=== PATIENT | female | born 1940 | race Caucasian/White ===

== ENCOUNTER → 2016-06-04 | Outpatient (CLI) | payer MEDICARE ==
[~2016-06-04] VITALS: Ht 157.5 cm; Wt 92.5 kg
[~2016-06-04] MED LIST: CALC1CAP31 PO; CALC600T57 PO; ECOT81TA5 PO; FOLI800C PO; GABA300C3 PO; GLUC500T53 PO; HYDR12.55 PO; KLON0.5T PO; LEVO88TA3 PO; LIDOCAINE 2% INJ 100 MG/5 ML SDV (FOR ANES.) As Ordered ONE; MECL-86 PO; MULTCAP11 PO; NEXI40CA PO; NS 1,000 ML IV SCH; OXYB5TA PO; POTA10CA PO; PROPOFOL 200 MG/20 ML VIAL As Ordered ONE; REME15TA PO; TOPR100T PO; TYLE500T78 PO; WELL100T2 PO; ZOCO20TA PO
--- NOTE | 2016-06-04 15:06 | ROOR ---
Patient Name: Jemma Ruvalcaba Procedure Date: 06/04/2016 2:41 PM Date of : 1940 Age: 76 Room: [facility] Gender: Female Note Status: Finalized Procedure: Colonoscopy Indications: Chronic diarrhea Providers: Didier El Jr, MD Referring MD: DANIEL BAUTISTA MD Requesting Provider: Medicines: Propofol per Anesthesia Complications: No immediate complications. Procedure: Pre-Anesthesia Assessment: - Prior to the procedure, a History and Physical was performed, and patient medications and allergies were reviewed. The patient is competent. The risks and benefits of the procedure and the sedation options and risks were discussed with the patient. All questions were answered and informed consent was obtained. Patient identification and proposed procedure were verified by the physician and the nurse in the pre-procedure area and in the procedure room. Mental Status Examination: alert and oriented. Airway Examination: normal oropharyngeal airway and neck mobility. Respiratory Examination: clear to auscultation. CV Examination: normal. ASA Grade Assessment: II - A patient with mild systemic disease. After reviewing the risks and benefits, the patient was deemed in satisfactory condition to undergo the procedure. The anesthesia plan was to use moderate sedation / analgesia (conscious sedation). Immediately prior to administration of medications, the patient was re-assessed for adequacy to receive sedatives. The heart rate, respiratory rate, oxygen saturations, blood pressure, adequacy of pulmonary ventilation, and response to care were monitored throughout the procedure. The physical status of the patient was re-assessed after the procedure. The Colonoscope was introduced through the anus and advanced to the cecum, identified by appendiceal orifice and ileocecal valve. The colonoscopy was performed without difficulty. The patient tolerated the procedure well. The quality of the bowel preparation was adequate and good. Findings: The perianal exam findings include non-thrombosed internal hemorrhoids, internal hemorrhoids that prolapse with straining, but spontaneously regress to the resting position (Grade II) and internal hemorrhoids that prolapse with straining, but require manual replacement into the anal canal (Grade III). Multiple small and large-mouthed diverticula were found in the sigmoid colon. The rectum, recto-sigmoid colon, descending colon, transverse colon, ascending colon, cecum, appendiceal orifice and ileocecal valve appeared normal. Biopsies for histology were taken with a cold forceps from the ascending colon, transverse colon, descending colon and sigmoid colon for evaluation of microscopic colitis. Impression: - Non-thrombosed internal hemorrhoids, internal hemorrhoids that prolapse with straining, but spontaneously regress to the resting position (Grade II) and internal hemorrhoids that prolapse with straining, but require manual replacement into the anal canal (Grade III) found on perianal exam. - Diverticulosis in the sigmoid colon. - The rectum, recto-sigmoid colon, descending colon, transverse colon, ascending colon, cecum, appendiceal orifice and ileocecal valve are normal. Biopsied. Recommendation: - Discharge patient to home (ambulatory). - Repeat colonoscopy in 10 years for screening purposes. Didier El MD Didier El Jr, MD 06/04/2016 3:05:52 PM This report has been signed electronically. Number of Addenda: 0 Note Initiated On: 06/04/2016 2:41 PM Estimated Blood Loss: Estimated blood loss: none.
[2016-06-04 15:36] VITALS: BP 145/84
== END | disposition home or self-care (01) ==
LOC: M OPP 14:03
PROVIDERS: ATTEND Surgery
DX: K64.8 Other hemorrhoids (principal); K64.1 Second degree hemorrhoids; K64.2 Third degree hemorrhoids; K57.30 Diverticulosis of large intestine without perforation or abscess without bleeding; I12.9 Hypertensive chronic kidney disease with stage 1 through stage 4 chronic kidney disease, or unspecified chronic kidney disease; E78.00 Pure hypercholesterolemia, unspecified; E03.9 Hypothyroidism, unspecified; D64.9 Anemia, unspecified; M19.90 Unspecified osteoarthritis, unspecified site; F41.9 Anxiety disorder, unspecified; F33.9 Major depressive disorder, recurrent, unspecified; N18.3 Chronic kidney disease, stage 3 (moderate); K21.9 Gastro-esophageal reflux disease without esophagitis; R32 Unspecified urinary incontinence; Z90.5 Acquired absence of kidney; Z97.4 Presence of external hearing-aid; Z79.899 Other long term (current) drug therapy; Z88.8 Allergy status to other drugs, medicaments and biological substances; Z88.5 Allergy status to narcotic agent; Z88.0 Allergy status to penicillin; Z88.2 Allergy status to sulfonamides; Z88.1 Allergy status to other antibiotic agents

== ENCOUNTER → 2016-12-08 | Outpatient (REF) | payer MEDICARE ==
[~2016-12-08] MED LIST changes: +GABA-282 PO; -GABA300C3 PO; -LIDOCAINE 2% INJ 100 MG/5 ML SDV (FOR ANES.) As Ordered ONE; -NS 1,000 ML IV SCH; -OXYB5TA PO; +OXYB5TAB10 PO; -PROPOFOL 200 MG/20 ML VIAL As Ordered ONE
== END ==
LOC: M LAB REF 13:20
PROVIDERS: ATTEND Surgery
DX: D23.71 Other benign neoplasm of skin of right lower limb, including hip (principal)

== ENCOUNTER → 2016-12-09 | Outpatient (REF) | payer MEDICARE | LOC: M LAB REF 17:34 | PROVIDERS: ATTEND Nurse Practitioner Women's Health | DX: R39.89 Other symptoms and signs involving the genitourinary system (principal) ==

== ENCOUNTER → 2016-12-23 | Outpatient (REF) | payer MEDICARE | LOC: M LAB REF 13:10 | PROVIDERS: ATTEND Internal Medicine Nephrology | DX: N18.3 Chronic kidney disease, stage 3 (moderate) (principal); R35.0 Frequency of micturition ==

== ENCOUNTER → 2017-03-25 | Outpatient (REF) | payer MEDICARE | LOC: M LAB REF 16:54 | PROVIDERS: ATTEND Internal Medicine Nephrology | DX: N18.3 Chronic kidney disease, stage 3 (moderate) (principal); N39.0 Urinary tract infection, site not specified ==

== ENCOUNTER → 2017-10-21 | Outpatient (REF) | payer MEDICARE | LOC: M LAB REF 13:10 | DX: R35.0 Frequency of micturition (principal) | CPT/HCPCS: 87086 ==

== ENCOUNTER → 2018-06-23 | Outpatient (REF) | payer MEDICARE ==
[~2018-06-23] MED LIST changes: -GABA-282 PO; +GABA-843 PO; +KLOR10TA76 PO; -POTA10CA PO; -TOPR100T PO; +TOPR100T13 PO
== END ==
LOC: M LAB REF 12:41
PROVIDERS: ATTEND Physician Assistant
DX: H81.399 Other peripheral vertigo, unspecified ear (principal)

== ENCOUNTER → 2018-09-06 | Outpatient (REF) | payer MEDICARE ==
[~2018-09-06] MED LIST changes: +TOPR100T PO; -TOPR100T13 PO
== END ==
LOC: M LAB REF 13:24
PROVIDERS: ATTEND Internal Medicine Nephrology
DX: N39.0 Urinary tract infection, site not specified (principal)

== ENCOUNTER → 2018-12-16 | Outpatient (REF) | payer MEDICARE | LOC: M LAB REF 14:03 | PROVIDERS: ATTEND Physician Assistant Medical | DX: N76.0 Acute vaginitis (principal); R30.0 Dysuria ==

== ENCOUNTER → 2019-03-13 | Outpatient (REF) | payer MEDICARE | LOC: M LAB REF 16:57 | PROVIDERS: ATTEND Internal Medicine Nephrology | DX: N39.0 Urinary tract infection, site not specified (principal) ==

== ENCOUNTER → 2019-08-29 | Outpatient (REF) | payer MEDICARE | LOC: M LAB REF 16:40 | PROVIDERS: ATTEND Nurse Practitioner Family | DX: N39.0 Urinary tract infection, site not specified (principal) ==

== ENCOUNTER → 2019-09-29 | Outpatient (REF) | payer MEDICARE ==
[2019-09-29 18:03] LABS: AMORPHOUS SEDIMENT SMALL (NEGATIVE); APPEARANCE, URINE CLOUDY (CLEAR); BACTERIA, URINE AUTO 1+ (NEGATIVE); BILIRUBIN, URINE AUTO NEGATIVE (NEGATIVE); BLOOD, URINE BLOOD NEGATIVE (NEGATIVE); COLOR, URINE YELLOW (YELLOW); GLUCOSE, URINE (UA) AUTO NEGATIVE (NEGATIVE); KETONE, URINE AUTO NEGATIVE (NEGATIVE); LEUKOCYTE ESTERASE, URINE AUTO 1+ (NEGATIVE); MUCUS, URINE SMALL (NEGATIVE); NITRITE, URINE AUTO NEGATIVE (NEGATIVE); PROTEIN, URINE AUTO NEGATIVE (NEGATIVE); RBC, URINE AUTO 2 /HPF (0-3); SPECIFIC GRAVITY URINE AUTO 1.019 (1.002-1.035); SQUAMOUS EPITHELIAL CELL UR AU 4 /HPF (0-6); UROBILINOGEN, URINE AUTO 0.2 mg/dL (0.0-2.0); WBC, URINE AUTO 25 /HPF (0-3)
[2019-09-29 18:37] LABS: CHOLESTEROL RISK RATIO 4.511 (<5); FREE T4 0.99 NG/DL (0.76-1.46); THYROID STIMULATING HORMONE 0.712 uIU/ML (0.358-3.740)
== END ==
LOC: M SFHCADAM 15:15
PROVIDERS: ATTEND Physician Assistant
DX: E03.9 Hypothyroidism, unspecified (principal); E78.00 Pure hypercholesterolemia, unspecified; Z79.899 Other long term (current) drug therapy
CPT/HCPCS: 80061; 81001; 84439; 84443; 87088; G0463

== ENCOUNTER → 2020-05-20 | Outpatient (CLI) | payer MEDICARE ==
[~2020-05-20] MED LIST changes: +GABA-282 PO; -GABA-843 PO; +MIRT-62 PO; -REME15TA PO
--- NOTE | 2020-05-21 08:32 | REP ---
INDICATION: CKD STAGE 3B COMPARISON: None TECHNIQUE: Real time bishop scale ultrasound examination using curved array transducer. FINDINGS: The right kidney measures 11.4 x 4.6 x 4.5 cm and demonstrates increased central sinus fat consistent with chronic renal disease and 1.4 x 1.0 x 1.3 cm midpole cyst. No hydronephrosis, nephrolithiasis, or mass lesion. The left kidney is not identified and consistent with the given history of hypoplastic/atrophic kidney. Bladder is grossly unremarkable. IMPRESSION: Right kidney demonstrates small cyst and evidence for chronic renal disease without hydronephrosis. Absent left kidney. <Electronically signed by Simon Vázquez > 05/21/20 [id number]
== END ==
LOC: M RAD 14:49
PROVIDERS: ATTEND Internal Medicine Nephrology
DX: N18.32 Chronic kidney disease, stage 3b (principal); Q60.3 Renal hypoplasia, unilateral; N28.1 Cyst of kidney, acquired

== ENCOUNTER → 2020-09-10 | Outpatient (CLI) | payer MEDICARE ==
--- NOTE | 2020-09-10 13:45 | REPMRS ---
Patient History The patient states she had a clinical breast exam in August 2020. Patient is postmenopausal and has history of other cancer at age 72. Family history of breast cancer at age 80 in mother. Benign excisional biopsy of the left breast, 1994. Benign Right breast biopsy. No Hormone Replacement Therapy Moderna 06/05/20 left arm. 07/04/20 left arm. 14 lb intentional weight loss. Digital Woman Screen Mammo: September 10, 2020 - Exam #: [id number] Bilateral CC and MLO view(s) were taken. Technologist: RT Rios Prior study comparison: September 12, 2019, bilateral digital mammo screening bilat, performed at [facility]. July 29, 2018, bilateral digital mammo screening bilat, performed at [facility]. July 22, 2017, bilateral digital mammo screening bilat, performed at [facility]. FINDINGS: There are scattered fibroglandular densities. The Volpara volumetric breast density category is:B. There has been no change in the appearance of the mammogram from the prior studies. There is a mild amount of scattered fibroglandular density which is fairly symmetric. There is no interval development of dominant mass, architectural distortion, or grouped microcalcification suggestive of malignancy. 3-D tomosynthesis shows no additional findings. Assessment: BI-RADS/ACR category 1 mammogram. Negative Mammogram. Recommendation Routine screening mammogram of both breasts in 1 year (for women over age 40). This patient's [facility] Lifetime Breast Cancer Risk is estimated at 4.1 %. This mammogram was interpreted with the aid of an FDA-approved computer-aided dectection system. Electronically Signed By: Enrique Carmona MD 09/10/20 [id number]
== END ==
LOC: M WHC 11:42
PROVIDERS: ATTEND Nurse Practitioner Adult Health
DX: Z12.31 Encounter for screening mammogram for malignant neoplasm of breast (principal)

== ENCOUNTER 2020-09-16 15:17 | Inpatient (IN) | payer MEDICARE ==
[~2020-09-16] VITALS: Ht 160 cm; Wt 80.1 kg
[2020-09-16] MEDS ORDERED: OMEP-221 (15:42)
[2020-09-16] MEDS ORDERED: TOPI50TA9 (15:42)
--- NOTE | 2020-09-16 16:54 | REP ---
INDICATION: fall. COMPARISON: None. TECHNIQUE: Helical scanning is acquired. 5 mm axial images were reformatted. Coronal MPR images were generated. FINDINGS: Bone window settings demonstrate an intact bony calvarium. There is no evidence of skull fracture or incidental bony calvarial lesion. The visualized paranasal sinuses appear clear. No intraorbital abnormality is seen. On soft tissue window setting images; the lateral, third, and fourth ventricles are normal in size and position. Guadalupe-white differentiation pattern is normal above and below the tentorium. There are is no evidence of intracranial hemorrhage. No mass, edema, infarction, or midline shift is seen. No extra-axial fluid collection is appreciated. There is minimal generalized volume loss and very mild vascular calcification. There is an occipital scalp contusion visible. IMPRESSION: No acute intracranial abnormality. There is an area of occipital scalp swelling consistent with contusion.. <Electronically signed by Enrique Carmona > 09/16/20 [id number]
[2020-09-16] MEDS ORDERED: METOPROLOL TART 25 MG TABLET PO ONE (17:00)
[2020-09-16] MEDS ORDERED: clonazePAM 0.5 MG TAB PO ONE (17:00)
[2020-09-16] MEDS ORDERED: LABETALOL 100MG/20ML VIAL IV STA ×2 (18:50→20:16)
[2020-09-16 19:39] LABS: HEMATOCRIT 38.1 % (36.0-47.0); HEMOGLOBIN 12.4 g/dl (12.0-15.5); MEAN CORPUSCULAR HEMOGLOBIN 33.2 pg (27.0-33.0); MEAN CORPUSCULAR HGB CONC 32.5 g/dl (32.0-36.5); MEAN CORPUSCULAR VOLUME 101.9 fl (80.0-96.0); PLATELET COUNT, AUTOMATED 184 10^3/uL (150-450); RED BLOOD COUNT 3.74 10^6/uL (4.00-5.40); WHITE BLOOD COUNT 6.3 10^3/uL (4.0-10.0)
[2020-09-16 20:15] LABS: ALBUMIN 3.1 GM/DL (3.2-5.2); ALT/SGPT 41 U/L (12-78); BILIRUBIN,DIRECT < 0.1 MG/DL (0.0-0.2); BILIRUBIN,TOTAL 0.2 MG/DL (0.2-1.0); BLOOD UREA NITROGEN 32 MG/DL (7-18); CALCIUM LEVEL 8.8 MG/DL (8.8-10.2); CARBON DIOXIDE LEVEL 26 MEQ/L (21-32); CHLORIDE LEVEL 114 MEQ/L (98-107); CREATININE FOR GFR 1.43 MG/DL (0.55-1.30); GLOMERULAR FILTRATION RATE 37.7 (>39); GLUCOSE, FASTING 91 MG/DL (70-100); POTASSIUM SERUM 4.5 MEQ/L (3.5-5.1); SODIUM LEVEL 145 MEQ/L (136-145); TOTAL PROTEIN 6.6 GM/DL (6.4-8.2)
[2020-09-16] MEDS ORDERED: FUROSEMIDE 20MG/2ML VIAL (J1940) IV ONE (20:20)
[2020-09-16 20:34] LABS: CK-MB VALUE MASS 39.1 NG/ML (<3.6); CPK CREATINE PHOSPHOKINASE 813 U/L (26-192); MB/CK RELATIVE INDEX 4.81 (< OR =4); TROPONIN I < 0.02 NG/ML (< 0.10)
[2020-09-16] MEDS ORDERED: MOM 30ML SUSPENSION UDC PO PRN (20:45)
[2020-09-16] MEDS ORDERED: MAALOX 30 ML SUSP *UDC PO PRN (20:45)
[2020-09-16] MEDS ORDERED: PRAVASTATIN 20 MG TAB PO SCH (21:00)
[2020-09-16] MEDS: ACETAMINOPHEN TAB 650MG DOSE (2X325MG) PO PRN (21:25)
[2020-09-16] MEDS ORDERED: BUPR150T5 PO (21:26)
[2020-09-16] MEDS ORDERED: TOPI50TA9 PO (21:26)
[2020-09-16] MEDS ORDERED: OMEP-221 PO (21:26)
[2020-09-16] MEDS ORDERED: CRAN400C PO (21:26)
[2020-09-16] MEDS ORDERED: PRAV20TA2 PO (21:26)
[2020-09-16 22:10] LABS: RSV AMPLIFICATION NEGATIVE (NEGATIVE)
--- NOTE | 2020-09-16 23:15 | HPEPDOC ---
[facility] Medical History & Physical Date of Admission September 16, 2020 Date of Service: September 16, 2020 Primary Care Physician: ELAINE VILLATORO PA-C Attending Physician: JACLYN GUIDRY MD History and Physical TIME OF SERVICE: 923pm CHIEF COMPLAINT: fall HISTORY OF PRESENT ILLNESS: This 80 yr old F has severe bilateral knee pain due to OA and has been putting of surgery. As a result of the pain she has been less active and has noticed that her gait is unsteady. While trying to walk to [facility] from her car she had difficulties stepping upon the curb, lost her balance, fell backwards, hit the back of her head but didnt lose consciousness. As a result of the fall she developed a BERGMAN. She denied having prodromal chest pain, dyspnea, dizziness, or n/v/d; she denied eating or drinking less than usual. After she fell [facility] staff called EMS who noted that her initial BP was 230/130. Despite receiving 20mg of IV Lasix, 20mg of IV Labetalol x2, Clonazepam 0.25mg and metoprolol tartrate 25mg PO the patients SBP is still in the 200s. REVIEW OF SYSTEMS: 12-point review of systems negative except as listed in HPI PAST MEDICAL/ SURGICAL HISTORY: unsteady gait 2/2 OA, hypothyroidism, depression, GERD, gastric ulcers, migraines, essential HTN, CKD3, Neuropathy, anxiety, DLP, hx of vertigo, IBS-D w C, hearing loss, bilateral hip replacements, hemorrhoidectomy, tubal ligation SOCIAL HISTORY: She doesnt smoke, is FAMILY HISTORY: Mother breast cancer / Father HTN ALLERGIES: Please see below. HOME MEDICATIONS: Please see below. PHYSICAL EXAMINATION: Vital Signs Date Time Temp Pulse Resp B/P (MAP) Pulse Ox O2 Delivery O2 Flow Rate FiO2 09/16/20 16:07 97.8 61 18 140/96 (111) 95 Room Air GENERAL APPEARANCE: well-nourished and developed/ NAD HEENT: EOMI / no conjunctival injection CARDIOVASCULAR: RRR/NMRG LUNGS: CTAB on RA ABDOMEN: contour obese /soft & NT MUSCULOSKELETAL: occipital scalp swelling NEUROLOGICAL: CN 2-12 grossly intact except for hearing / speech not dysarthric PSYCHIATRIC: A&O /able to understand and follow all commands LABORATORY DATA: Nucleated Red Blood Cells % (auto) 0.0, Anion Gap 5L, Glomerular Filtration Rate 37.7L, Calcium Level 8.8, Total Bilirubin 0.2, Direct Bilirubin < 0.1, Aspartate Amino Transf (AST/SGOT) 31, Alanine Aminotransferase (ALT/SGPT) 41, Alkaline Phosphatase 82, Total Creatine Kinase 813H, Creatine Kinase MB 39.1H, Creatine Kinase MB Relative Index 4.81H, Troponin I < 0.02, Total Protein 6.6, Albumin 3.1L, Albumin/Globulin Ratio 0.9L IMAGING: CT head IMPRESSION: No acute intracranial abnormality. There is an area of occipital scalp swelling consistent with contusion. MICROBIOLOGY: respiratory panel neg ASSESSMENT: Ms. Ruvalcaba is a 80 yr old w unsteady gait 2/2 OA, hypothyroidism, depression, migraines, HTN, CKD3, Neuropathy, anxiety, DLP, hx of vertigo & IBS- D w C who had a mechanical fall and will be admitted for HTN Crisis. PLAN: 1 Hypertensive Crisis Her only symptom is BERGMAN which could also be attributed to head trauma He diagnosis will be Hypertensive Urgency if it is confirmed that her Cr is at baseline vs Hypertensive Emergency if it is confirmed that she has NATHAN Plan: bc her SBP remained >200 despite several BP meds we will admit to ICU for a continuous infusion of nitroprusside to achieve rapid and tightly controlled reduction while avoiding overcorrection / will aim to lower BP by 25% w/in the first 2-4 hours with target BP of <160/100 / avoid excessive environmental stimuli / resume metoprolol, the day time team may add another anti-HTN agent in the AM if she is off the drip 2 NATHAN vs NATHAN on CKD3 I am not sure what her baseline renal function is. If she has NATHAN it is likey triggered by an acute elevation in her BP Plan: pending [place] for FENa, renal US, PTH, Phosph will hold off starting IVF / Calcitriol 3 Mechanical Fall I asked Mckinley Edouard to complete the Trauma Activation sheet Plan: frequent neuro checks/fall precautions/ the day time team may consult physical therapy 4 hypothyroidism Plan: Levothyroxine 5 Neuropathy Plan: Gabapentin 6 migraines Plan: Topiramate 7 Neuropathy Plan: Gabapentin 8 anxiety / depression Plan: Clonazepam, Mirtazapine 9 DLP Plan: Pravastatin 10 Obesity Complicates care Plan: f/u A1C. / the patient can f/u w his or her PCP for sleep apnea screening DVT px w Heparin Dispo: home vs ARU after at least 2 midnights stay Home Medications Scheduled Bupropion Hcl (Bupropion HCl Sr) 150 Mg Tab.sr.12h, 150 MG PO QHS Calcitriol (Calcitriol) 0.25 Mcg Cap, 0.25 MCG PO 2XW WEDNESDAY AND WEDNESDAY Clonazepam (Klonopin) 0.5 Mg Tab, 0.25 MG PO DAILY Cranberry (Cranberry) 400 Mg Capsule, 400 MG PO BID Folic Acid (Folic Acid) 800 Mcg Cap, 800 MCG PO DAILY Gabapentin (Gabapentin) 300 Mg Cap, 300 MG PO BID Levothyroxine Sodium (Levothyroxine Sodium) 88 Mcg Tab, 88 MCG PO QHS Metoprolol Succinate (Toprol Xl) 100 Mg Tab, 100 MG PO DAILY Mirtazapine (Remeron) 15 Mg Tab, 15 MG PO QHS Omeprazole (Omeprazole) 40 Mg Capsule.dr, 40 MG PO DAILY Oxybutynin Chloride (Oxybutynin Chloride) 5 Mg Tab, 5 MG PO BID Pravastatin Sodium (Pravastatin Sodium) 20 Mg Tablet, 20 MG PO 2XWK WEDNESDAY AND WEDNESDAY AT QHS Topiramate (Topiramate) 50 Mg Tablet, 50 MG PO BID Allergies Coded Allergies: Penicillins (Verified Allergy, Intermediate, hives, 09/16/20) Tetracyclines (Verified Adverse Reaction, Intermediate, pernicious anemia, 09/16/20) sulfamethoxazole (Verified Adverse Reaction, Intermediate, acute kidney injury, 09/16/20) trimethoprim (Verified Adverse Reaction, Intermediate, acute kidney injury, 09/16/20) NSAIDS (Non-Steroidal Anti-Inflamma (Verified Adverse Reaction, Mild, hernia upset, 09/16/20) alprazolam (Verified Adverse Reaction, Mild, upset stomach, 09/16/20) amlodipine (Verified Adverse Reaction, Mild, nervousness, edgey, 09/16/20) isopropamide (Verified Adverse Reaction, Mild, AMS, 09/16/20) oxycodone (Verified Adverse Reaction, Mild, nausea and dizziness, 09/16/20) prochlorperazine (Verified Adverse Reaction, Mild, AMS, 09/16/20) JACLYN GUIDRY MD September 16, 2020 23:14
[2020-09-16] MEDS ORDERED: MIRTAZAPINE 15 MG TAB PO SCH (23:20)
[2020-09-16] MEDS ORDERED: buPROPion **SR TABLET** (ZYBAN) 150MG PO SCH (23:20)
[2020-09-16] MEDS ORDERED: LEVOTHYROXINE 88MCG TABLET (0.088 MG) PO SCH (23:20)
[2020-09-16 23:41] VITALS: BP 151/70
[2020-09-16 23:44] LABS: PHOSPHORUS LEVEL 3.4 MG/DL (2.5-4.9); URIC ACID 5.1 MG/DL (2.6-6.0)
[2020-09-17] VITALS (53 sets, daily range): BP systolic 99–216; BP diastolic 51–99
[2020-09-17] MEDS ORDERED: PILL CUTTER 1 EACH XX PRN (00:15)
[2020-09-17 01:08] LABS: APPEARANCE, URINE CLEAR (CLEAR); BACTERIA, URINE AUTO NEGATIVE (NEGATIVE); BILIRUBIN, URINE AUTO NEGATIVE (NEGATIVE); BLOOD, URINE BLOOD NEGATIVE (NEGATIVE); COLOR, URINE COLORLESS (YELLOW); GLUCOSE, URINE (UA) AUTO NEGATIVE (NEGATIVE); KETONE, URINE AUTO NEGATIVE (NEGATIVE); LEUKOCYTE ESTERASE, URINE AUTO NEGATIVE (NEGATIVE); MUCUS, URINE SMALL (NEGATIVE); NITRITE, URINE AUTO NEGATIVE (NEGATIVE); PROTEIN, URINE AUTO NEGATIVE (NEGATIVE); RBC, URINE AUTO 0 /HPF (0-3); SPECIFIC GRAVITY URINE AUTO 1.005 (1.002-1.035); SQUAMOUS EPITHELIAL CELL UR AU 1 /HPF (0-6); UROBILINOGEN, URINE AUTO 0.2 mg/dL (0.0-2.0); WBC, URINE AUTO 2 /HPF (0-3)
[2020-09-17] MEDS: oxyBUTYnin 5 MG TAB PO SCH ×2 (01:19→08:49)
[2020-09-17] MEDS: TOPIRAMATE (TopAMAX) 25 MG TAB PO SCH ×2 (01:19→08:48)
[2020-09-17] MEDS: GABAPENTIN 300 MG CAP PO SCH ×2 (01:19→08:49)
[2020-09-17 01:40] LABS: SODIUM,RANDOM URINE 131 MEQ/L; UREA NITROGEN RANDOM URINE 179 MG/DL
[2020-09-17] MEDS ORDERED: NITROPRUSSIDE SODIUM 50 MG in IV 1 EA IV SCH ×3 (05:00)
[2020-09-17 05:02] LABS: HEMATOCRIT 40.1 % (36.0-47.0); HEMOGLOBIN 13.1 g/dl (12.0-15.5); MEAN CORPUSCULAR HEMOGLOBIN 32.8 pg (27.0-33.0); MEAN CORPUSCULAR HGB CONC 32.7 g/dl (32.0-36.5); MEAN CORPUSCULAR VOLUME 100.3 fl (80.0-96.0); PLATELET COUNT, AUTOMATED 179 10^3/uL (150-450); WHITE BLOOD COUNT 5.6 10^3/uL (4.0-10.0)
[2020-09-17 05:23] LABS: BLOOD UREA NITROGEN 31 MG/DL (7-18); CALCIUM LEVEL 8.8 MG/DL (8.8-10.2); CARBON DIOXIDE LEVEL 25 MEQ/L (21-32); CHLORIDE LEVEL 112 MEQ/L (98-107); CREATININE FOR GFR 1.49 MG/DL (0.55-1.30); GLOMERULAR FILTRATION RATE 35.9 (>39); GLUCOSE, FASTING 88 MG/DL (70-100); POTASSIUM SERUM 4.2 MEQ/L (3.5-5.1); SODIUM LEVEL 144 MEQ/L (136-145)
[2020-09-17 05:27] LABS: HEMOGLOBIN A1c 5.3 %
[2020-09-17] MEDS ORDERED: HEPARIN SOD (PORCINE) 5000UNITS/ML 1ML VIAL/SYRINGE SQ SCH (06:00)
[2020-09-17 07:14] LABS: TROPONIN I < 0.02 NG/ML (< 0.10)
--- NOTE | 2020-09-17 07:43 | REP ---
INDICATION: nichelle COMPARISON: 05/20/2020 TECHNIQUE: Real time bishop scale ultrasound examination using curved array transducer. FINDINGS: Right kidney is normal in appearance and measures 11.0 x 5.0 x 5.4 cm. No hydronephrosis, nephrolithiasis, obvious cystic or renal mass lesion. The 14 mm cyst identified on recent prior examination is not visualized on current exam and may be secondary to technical factors. Left renal fossa is empty without evidence for left kidney. Bladder is unremarkable. IMPRESSION: 1. Normal appearance of the right kidney. Previously noted small right renal cyst not visualized on current exam. <Electronically signed by Simon Vázquez > 09/17/20 [id number]
[2020-09-17] MEDS ORDERED: METOPROLOL SUCC (TopROL XL) 100MG *XL* TAB PO SCH (09:00)
[2020-09-17] MEDS ORDERED: OMEPRAZOLE 20 MG CAP PO SCH (09:00)
[2020-09-17] MEDS ORDERED: clonazePAM 0.5 MG TAB PO SCH (09:00)
[2020-09-17] MEDS: ACETAMINOPHEN TAB 650MG DOSE (2X325MG) PO PRN (09:08)
[2020-09-17 09:21] LABS: TOTAL 25(OH) VITAMIN D 18.3 NG/ML (30.0-100.0)
[2020-09-17 09:22] LABS: PTH INTACT 67.6 PG/ML (18.5-88.0)
--- NOTE | 2020-09-17 10:34 | DS.PDOC ---
Discharge Summary General Date of Admission September 16, 2020 at 20:45 Date of Discharge 09/17/20 Discharge Summary PROCEDURES PERFORMED DURING STAY: [None]. DISCHARGE DIAGNOSES: Mechanical fall with no trauma Hypertensive urgency. 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 HOSPITAL COURSE: This 80 yr old F has severe bilateral knee pain due to OA and has been putting of surgery. As a result of the pain she has been less active and has noticed that her gait is unsteady. While trying to walk to [place] from her car she had difficulties stepping upon the curb, lost her balance, fell backwards, hit the back of her head, right shoulder and lower back but didnt lose consciousness. After she fell [facility] staff called EMS who noted that her initial BP was 230/130. Despite receiving 20mg of IV Lasix, 20mg of IV Labetalol x2, Clonazepam 0.25mg and metoprolol tartrate 25mg PO the patients SBP was still in the 200s so was admitted for Hypertensive urgency. She was on nitroprusside drip for about an hour and after that her blood pressure improved, hasn't been on any drip for the past several hours. She was continued on her metoprolol 100 mg daily and was started on amlodipine 10mg. this morning. She complains of some soreness of the back of the head and her right shoulder and her back for which she was given Tylenol. Her blood pressure is better controlled. . Currently she is stable and doing well. She is given to be discharged home. REVIEW OF SYSTEMS: 12-point review of systems negative except as listed in HPI PAST MEDICAL/ SURGICAL HISTORY: DISCHARGE MEDICATIONS: Please see below. ALLERGIES: Please see below. PHYSICAL EXAMINATION ON DISCHARGE: VITAL SIGNS: Please see below. GENERAL: Alert, oriented, sitting up in bed in no distress HEENT: Normocephalic, Moist mucous membranes. Anicteric eyes, there is a small scalp hematoma at the back of the head NECK: Supple, no thyromegaly CARDIOVASCULAR EXAMINATION: S1, S2 normal regular heart sounds. No rub, murmur or gallop RESPIRATORY EXAMINATION: Bilateral vesicular breath sounds clear to auscultation ABDOMINAL EXAMINATION: Soft, nontender. Bowel sounds normal EXTREMITIES: No edema LABORATORY DATA: Please see below. ACTIVITY: [As tolerated]. DIET: 2 g sodium DISCHARGE PLAN: Home DISCHARGE INSTRUCTIONS: With PMD in 1 week DISCHARGE CONDITION: [Stable]. TIME SPENT ON DISCHARGE: 35 minutes. Vital Signs/I&Os Vital Signs Date Time Temp Pulse Resp B/P (MAP) Pulse Ox O2 Delivery O2 Flow Rate FiO2 09/17/20 09:08 59 178/75 09/17/20 09:00 18 95 Room Air 09/17/20 08:00 98.1 I&O- Last 24 Hours up to 6 AM 09/17/20 06:00 Intake Total 50 ml Output Total 420 ml Balance -370 ml Laboratory Data Labs 24H Laboratory Tests 2 09/16/20 18:50: Nucleated Red Blood Cells % (auto) 0.0, Anion Gap 5L, Glomerular Filtration Rate 37.7L, Uric Acid 5.1, Calcium Level 8.8, Phosphorus Level 3.4, Total Bilirubin 0.2, Direct Bilirubin < 0.1, Aspartate Amino Transf (AST/SGOT) 31, Alanine Aminotransferase (ALT/SGPT) 41, Alkaline Phosphatase 82, Total Creatine Kinase 813H, Creatine Kinase MB 39.1H, Creatine Kinase MB Relative Index 4.81H, Troponin I < 0.02, Total Protein 6.6, Albumin 3.1L, Albumin/Globulin Ratio 0.9L, 25-Hydroxy Vitamin D Total 18.3L, Parathyroid Hormone (Intact) 67.6 09/16/20 21:19: Coronavirus (COVID-19)(PCR) NEGATIVE, Influenza Type A (RT-PCR) NEGATIVE, Influenza Type B (RT-PCR) NEGATIVE, Respiratory Syncytial Virus (PCR) NEGATIVE 09/17/20 00:53: Urine Color COLORLESS, Urine Appearance CLEAR, Urine pH 5.0, Urine Specific [place] 1.005, Urine Protein NEGATIVE, Urine Glucose (Auto)(UA) NEGATIVE, Urine Ketones (Auto) NEGATIVE, Urine Blood NEGATIVE, Urine Nitrite NEGATIVE, Urine Bilirubin NEGATIVE, Urine Urobilinogen 0.2, Urine Leukocyte Esterase (Auto) NEGATIVE, Urine WBC (Auto) 2, Urine RBC (Auto) 0, Urine Hyaline Casts (Auto) 1, Urine Bacteria (Auto) NEGATIVE, Urine Squamous Epithelial Cells 1, Urine Mucus (Auto) SMALL, Urine Sperm (Auto) , Urine Random Creatinine 15.5, Urine Random Sodium 131, Urine Random Urea Nitrogen 179 09/17/20 04:33: Nucleated Red Blood Cells % (auto) 0.0, Anion Gap 7L, Glomerular Filtration Rate 35.9L, Calcium Level 8.8, Troponin I < 0.02, Estimated Mean Plasma Glucose 105, Hemoglobin A1c 5.3 CBC/BMP Laboratory Tests 09/16/20 18:50 09/17/20 04:33 Discharge Medications Scheduled Bupropion Hcl (Bupropion HCl Sr) 150 Mg Tab.sr.12h, 150 MG PO QHS, (Reported) Calcitriol (Calcitriol) 0.25 Mcg Cap, 0.25 MCG PO 2XW, (Reported) WEDNESDAY AND WEDNESDAY Clonazepam (Klonopin) 0.5 Mg Tab, 0.25 MG PO DAILY, (Reported) Cranberry (Cranberry) 400 Mg Capsule, 400 MG PO BID, (Reported) Folic Acid (Folic Acid) 800 Mcg Cap, 800 MCG PO DAILY, (Reported) Gabapentin (Gabapentin) 300 Mg Cap, 300 MG PO BID, (Reported) Levothyroxine Sodium (Levothyroxine Sodium) 88 Mcg Tab, 88 MCG PO QHS, (Reported) Metoprolol Succinate (Toprol Xl) 100 Mg Tab, 100 MG PO DAILY, (Reported) Mirtazapine (Remeron) 15 Mg Tab, 15 MG PO QHS, (Reported) Omeprazole (Omeprazole) 40 Mg Capsule.dr, 40 MG PO DAILY, (Reported) Oxybutynin Chloride (Oxybutynin Chloride) 5 Mg Tab, 5 MG PO BID, (Reported) Pravastatin Sodium (Pravastatin Sodium) 20 Mg Tablet, 20 MG PO 2XWK, (Reported) WEDNESDAY AND WEDNESDAY AT QHS Topiramate (Topiramate) 50 Mg Tablet, 50 MG PO BID, (Reported) Allergies Coded Allergies: Penicillins (Verified Allergy, Intermediate, hives, 09/16/20) Tetracyclines (Verified Adverse Reaction, Intermediate, pernicious anemia, 09/16/20) sulfamethoxazole (Verified Adverse Reaction, Intermediate, acute kidney injury, 09/16/20) trimethoprim (Verified Adverse Reaction, Intermediate, acute kidney injury, 09/16/20) NSAIDS (Non-Steroidal Anti-Inflamma (Verified Adverse Reaction, Mild, hernia upset, 09/16/20) alprazolam (Verified Adverse Reaction, Mild, upset stomach, 09/16/20) amlodipine (Verified Adverse Reaction, Mild, nervousness, edgey, 09/16/20) isopropamide (Verified Adverse Reaction, Mild, AMS, 09/16/20) oxycodone (Verified Adverse Reaction, Mild, nausea and dizziness, 09/16/20) prochlorperazine (Verified Adverse Reaction, Mild, AMS, 09/16/20) STEFANIE CANTOR MD September 17, 2020 10:34
[2020-09-17] MEDS ORDERED: AMLO1TAB25 PO ×2 (10:35→11:47)
[2020-09-17] MEDS ORDERED: **hydrALAZINE HCL** 25 MG TAB PO SCH (12:00)
--- NOTE | 2020-09-17 21:33 | ECGEPIP ---
[facility] - ED Test Date: 2020-09-16 Pat Name: ANIL LEZAMA Department: Room: [place] [address] Gender: Female Vest Backer: NOHEMY : 1940 Requested By: MAURY KELLER Order Number: [id number] Reading MD: Hina Jay Measurements Intervals [place] Rate: 67 P: 46 [place]: 182 QRS: -47 QRSD: 100 T: 4 QT: 420 QTc: 443 Interpretive Statements Normal sinus rhythm Left anterior fascicular block Left ventricular hypertrophy ( R in aVL , [place] product , Romhilt-Rose ) NSTTW abnormalities prwp no prior Electronically Signed on 09-17-2020 21:33:05 EDT by Hina Jay
[2020-09-20] MEDS ORDERED: CALCITRIOL 0.25 MCG CAP (S0169) PO SCH (09:00)
== END 2020-09-17 12:17 | disposition home or self-care (01) | DRG 305 ==
LOC: M ED 15:17 → M ED INP 20:45 → M ICU 23:26
PROVIDERS: ADMIT Internal Medicine; ATTEND Internal Medicine Nephrology
DX: I16.0 Hypertensive urgency (principal); S00.83XA Contusion of other part of head, initial encounter; W10.1XXA Fall (on)(from) sidewalk curb, initial encounter; Y92.9 Unspecified place or not applicable; N18.30 Chronic kidney disease, stage 3 unspecified; E03.9 Hypothyroidism, unspecified; G62.9 Polyneuropathy, unspecified; F41.9 Anxiety disorder, unspecified; F32.9 Major depressive disorder, single episode, unspecified; E78.5 Hyperlipidemia, unspecified; E66.9 Obesity, unspecified; Z66 Do not resuscitate; Z79.899 Other long term (current) drug therapy; Z88.0 Allergy status to penicillin; Z88.5 Allergy status to narcotic agent; Z88.8 Allergy status to other drugs, medicaments and biological substances; M17.0 Bilateral primary osteoarthritis of knee; R26.81 Unsteadiness on feet; Z68.31 Body mass index [BMI] 31.0-31.9, adult

== ENCOUNTER → 2020-09-24 | Outpatient (REF) | payer MEDICARE ==
[~2020-09-24] MED LIST changes: +AMLO1TAB25 PO; +BUPR150T5 PO; +CRAN400C PO; +OMEP-221; +OMEP-221 PO; +PRAV20TA2 PO; +TOPI50TA9; +TOPI50TA9 PO
[2020-09-24 13:20] LABS: CALCIUM LEVEL 9.1 MG/DL (8.8-10.2); CREATININE FOR GFR 1.57 MG/DL (0.55-1.30); GLOMERULAR FILTRATION RATE 33.8 (>39)
== END ==
LOC: M SFHCADAM 10:15
PROVIDERS: ATTEND Physician Assistant
DX: N18.32 Chronic kidney disease, stage 3b (principal)
CPT/HCPCS: 80048; 99496; G0463

== ENCOUNTER → 2020-12-03 | Outpatient (REF) | payer MEDICARE ==
[~2020-12-03] MED LIST changes: -KLOR10TA76 PO; +POTA-136 PO
[2020-12-03 14:09] LABS: CHOLESTEROL RISK RATIO 5.186 (<5); FREE T4 0.94 NG/DL (0.76-1.46); THYROID STIMULATING HORMONE 0.963 uIU/ML (0.358-3.740)
== END ==
LOC: M SFHCADAM 10:02
PROVIDERS: ATTEND Physician Assistant
DX: E03.9 Hypothyroidism, unspecified (principal); E78.00 Pure hypercholesterolemia, unspecified
CPT/HCPCS: 80061; 84439; 84443; G0463

== ENCOUNTER 2021-01-30 16:45 | Inpatient (IN) | payer MEDICARE ==
[~2021-01-30] VITALS: Ht 160 cm; Wt 82.3 kg
[2021-01-30 18:01] LABS: BASO # 0.1 10^3/uL (0.0-0.2); BASO % 1.3 % (0.0-1.0); EOS # 0.2 10^3/uL (0.0-0.5); EOS % 2.9 % (0.0-3.0); HEMATOCRIT 39.5 % (36.0-47.0); HEMOGLOBIN 12.9 g/dl (12.0-15.5); LYMPH # 1.4 10^3/uL (1.5-5.0); LYMPH % 25.4 % (24.0-44.0); MEAN CORPUSCULAR HEMOGLOBIN 32.8 pg (27.0-33.0); MEAN CORPUSCULAR HGB CONC 32.7 g/dl (32.0-36.5); MEAN CORPUSCULAR VOLUME 100.5 fl (80.0-96.0); MONO # 0.7 10^3/uL (0.0-0.8); MONO % 12.6 % (2.0-8.0); NEUTROPHILS # 3.2 10^3/uL (1.5-8.5); NEUTROPHILS % 57.6 % (36.0-66.0); PLATELET COUNT, AUTOMATED 204 10^3/uL (150-450); RED BLOOD COUNT 3.93 10^6/uL (4.00-5.40); WHITE BLOOD COUNT 5.5 10^3/uL (4.0-10.0)
--- NOTE | 2021-01-30 18:02 | REP ---
INDICATION: CHEST PAIN COMPARISON: None. TECHNIQUE: Portable AP view of the chest FINDINGS: The mediastinum and cardiac silhouette are within normal limits for portable technique. The lung pereira are clear without acute consolidation, effusion, or pneumothorax. Skeletal structures are intact. IMPRESSION: No acute cardiopulmonary process appreciated. <Electronically signed by Simon Vázquez > 01/30/21 [id number]
[2021-01-30 18:47] LABS: ALBUMIN 3.2 GM/DL (3.2-5.2); ALT/SGPT 54 U/L (12-78); BILIRUBIN,DIRECT < 0.1 MG/DL (0.0-0.2); BILIRUBIN,TOTAL 0.2 MG/DL (0.2-1.0); BLOOD UREA NITROGEN 39 MG/DL (7-18); CALCIUM LEVEL 9.3 MG/DL (8.8-10.2); CARBON DIOXIDE LEVEL 24 MEQ/L (21-32); CHLORIDE LEVEL 112 MEQ/L (98-107); CK-MB VALUE MASS 42.3 NG/ML (<3.6); CPK CREATINE PHOSPHOKINASE 792 U/L (26-192); CREATININE FOR GFR 1.72 MG/DL (0.55-1.30); GLOMERULAR FILTRATION RATE 30.5 (>39); GLUCOSE, FASTING 96 MG/DL (70-100); LIPASE 118 U/L (73-393); MB/CK RELATIVE INDEX 5.34 (< OR =4); NT-PRO BNP 360 PG/ML (<450); POTASSIUM SERUM 4.6 MEQ/L (3.5-5.1); SODIUM LEVEL 143 MEQ/L (136-145); TOTAL PROTEIN 7.6 GM/DL (6.4-8.2); TROPONIN I < 0.02 NG/ML (< 0.10)
[2021-01-30] MEDS ORDERED: hydrALAZINE 20MG/ML 1ML VIAL (J0360 PER 20MG) IV ONE (18:50)
[2021-01-30] MEDS ORDERED: NS 1,000 ML IV SCH (18:50)
--- NOTE | 2021-01-30 19:59 | ECGEPIP ---
[facility] - ED Test Date: 2021-01-30 Pat Name: ANIL LEZAMA Department: Room: - Gender: Female Channeler Insole: : 1940 Requested By: Hina Jay Order Number: [id number] Reading MD: Skyler Lindsay Measurements Intervals [place] Rate: 55 P: 43 CO: 222 QRS: -41 QRSD: 108 T: 1 QT: 434 QTc: 415 Interpretive Statements Sinus bradycardia with 1st degree AV block Left axis deviation LEFT ANTERIOR FASCICULAR BLOCK INCOMPLETE RIGHT BUNDLE BRANCH BLOCK Left ventricular hypertrophy ( R in aVL , [place] product , Romhilt-Rose ) SIMILAR TO 09/16/20 Electronically Signed on 01-30-2021 19:59:01 EDT by Skyler Lindsay
[2021-01-30] MEDS ORDERED: hydrALAZINE 20MG/ML 1ML VIAL (J0360 PER 20MG) IV STA (20:42)
[2021-01-30] MEDS ORDERED: buPROPion **SR TABLET** (ZYBAN) 150MG PO SCH (21:00)
[2021-01-30 21:20] LABS: CK-MB VALUE MASS 41.1 NG/ML (<3.6); CPK CREATINE PHOSPHOKINASE 751 U/L (26-192); MB/CK RELATIVE INDEX 5.47 (< OR =4); TROPONIN I < 0.02 NG/ML (< 0.10)
[2021-01-30] MEDS ORDERED: MAALOX 30 ML SUSP *UDC PO PRN (21:50)
[2021-01-30] MEDS ORDERED: LABETALOL 200 MG TAB PO SCH (21:50)
[2021-01-30] MEDS ORDERED: ACETAMINOPHEN TAB 650MG DOSE (2X325MG) PO PRN (21:50)
[2021-01-30] MEDS ORDERED: MOM 30ML SUSPENSION UDC PO PRN (21:50)
[2021-01-30] MEDS ORDERED: FUROSEMIDE 40 MG TAB PO SCH (21:50)
--- NOTE | 2021-01-30 21:55 | HPEPDOC ---
[facility] Medical History & Physical Date of Admission Jan 30, 2021 Date of Service: Jan 30, 2021 Primary Care Physician: ELAINE VILLATORO PA-C Attending Physician: JACLYN GUIDRY MD History and Physical TIME OF SERVICE: 1006pm CHIEF COMPLAINT: chest pain HISTORY OF PRESENT ILLNESS: , a 80 yr old F was last admitted to our service in August for HTN Crisis; in addition to c/w her Metoprolol she was discharged with amlodipine 10mg daily. She felt like the amlodipine made her fell unwell so she discontinued it. She has followed up with Elaine Aguirre. This morning at about 830AM she developed 2/10 in severity left sided, non- reproducible chest pain; she couldnt identify any aggravating or alleviating factors. She also has a BERGMAN but denies being dizzy or feeling short of breath. She denies missing any doses of her metoprolol, taking NSAIDs, drinking soda, eating salty foods, being under a lot of stress or smoking. When she checked her BP it was high so she decided to come to the ER; according to the pt her BP was normal yesterday. Because her SBP was in the 200s [place] Mak ordered 10mg of IV hydralazine x 2. REVIEW OF SYSTEMS: 12-point review of systems negative except as listed in HPI PAST MEDICAL/ SURGICAL HISTORY: unsteady gait 2/2 OA, hypothyroidism, depression/ anxiety, GERD, gastric ulcers, migraines, essential HTN, CKD3, neuropathy, DLP, hx of vertigo, IBS-D /C, diverticulosis, hearing loss, class 1 obesity, bilateral total hip replacements, hemorrhoidectomy, tubal ligation, hysterectomy FAMILY HISTORY: Mother breast cancer / Father HTN SOCIAL HISTORY: She doesnt smoke, is a ALLERGIES: Please see below. HOME MEDICATIONS: Please see below. PHYSICAL EXAMINATION: Vital Signs Date Time Temp Pulse Resp B/P (MAP) Pulse Ox O2 Delivery O2 Flow Rate FiO2 01/30/21 16:46 97.6 54 16 190/99 (129) 93 Room Air GENERAL APPEARANCE: well-nourished and developed/ NAD HEENT: EOMI / MMM&P CARDIOVASCULAR: RRR/NMRG LUNGS: CTAB on RA ABDOMEN: contour convex MUSCULOSKELETAL: NCAT / JULIETA x 4 extremities INTEGUMENT: not flushed pale or diaphoretic NEUROLOGICAL: speech not dysarthric PSYCHIATRIC: A&O / able to understand and follow all commands LABORATORY DATA: IMAGING: Chest xray IMPRESSION: No acute cardiopulmonary process appreciated. MICROBIOLOGY: Respiratory panel negative ASSESSMENT: is a 80 yr old w a hx of unsteady gait 2/2 OA, hypothyroidism, depression/ anxiety, gastric ulcers, migraines, HTN, CKD3, neuropathy, DLP, IBS-D /C, hearing loss & class 1 obesity who is admitted for management of symptomatic HTN Urgency. PLAN: 1 Symptomatic HTN Urgency She has a BERGMAN chest pain but there are currently no signs of end organ damage. Its unclear what triggered this episode. Plan: admit to PCU / administer Labetalol 200mg PO and Clonidine 0.1mg PO x 1 / resume Metoprolol XL 100mg daily and add hydralazine 10mg IV Q4H PRN for SBP >160 / will aim to lower BP by 25% w/in the first 2-4 hours with target BP of <160/100 / bed rest & avoid excessive environmental stimuli / low salt diet / she can f/u with her PCP to discuss lifestyle modifications (ie cardiovascular exercise 4-5 days a week & referral to containers sales representative for assistance w weight loss when ready for dc) / the day time team can determine which second anti-HTN to add to her regimen prior to discharge 2 Elevated CPK Possibly 2/2 early MD vs statin use vs Rhabdomyolysis vs other cause TBD Plan: trend CPK / IVF / trend troponins / f/u urine myoglobin / hold statin 3 1st Degree AV block ECG report was reviewed The bradycardia may be partially due to chronic metoprolol use Plan: telemetry 4 CKD3 Close to baseline Plan: f/u BMP / Calcitriol 5 hypothyroidism Plan: Levothyroxine 6 Neuropathy Plan: Gabapentin 7 migraines Plan: Topiramate 8 anxiety / depression Plan: Clonazepam, Mirtazapine 9 Class 1 Obesity Complicates care Her A1C was 5.3 in August DVT px w heparin bc her GFR is 30 Dispo: home after at least 2 midnights stay Home Medications Scheduled Bupropion Hcl (Bupropion HCl Sr) 150 Mg Tab.sr.12h, 150 MG PO QHS Calcitriol (Calcitriol) 0.25 Mcg Cap, 0.25 MCG PO 2XW WEDNESDAY AND AMAURY Clonazepam (Klonopin) 0.5 Mg Tab, 0.25 MG PO DAILY Cranberry (Cranberry) 400 Mg Capsule, 400 MG PO BID Folic Acid (Folic Acid) 800 Mcg Cap, 800 MCG PO DAILY Gabapentin (Gabapentin) 300 Mg Cap, 300 MG PO BID Levothyroxine Sodium (Levothyroxine Sodium) 88 Mcg Tab, 88 MCG PO QHS Metoprolol Succinate (Toprol Xl) 100 Mg Tab, 100 MG PO DAILY Mirtazapine (Remeron) 15 Mg Tab, 15 MG PO QHS Omeprazole (Omeprazole) 40 Mg Capsule.dr, 40 MG PO DAILY Oxybutynin Chloride (Oxybutynin Chloride) 5 Mg Tab, 5 MG PO BID Pravastatin Sodium (Pravastatin Sodium) 20 Mg Tablet, 20 MG PO 2XWK WEDNESDAY AND WEDNESDAY AT [facility] Topiramate (Topiramate) 50 Mg Tablet, 50 MG PO BID Allergies Coded Allergies: Penicillins (Verified Allergy, Intermediate, hives, 09/16/20) Tetracyclines (Verified Adverse Reaction, Intermediate, pernicious anemia, 09/16/20) sulfamethoxazole (Verified Adverse Reaction, Intermediate, acute kidney injury, 09/16/20) trimethoprim (Verified Adverse Reaction, Intermediate, acute kidney injury, 09/16/20) NSAIDS (Non-Steroidal Anti-Inflamma (Verified Adverse Reaction, Mild, hernia upset, 09/16/20) alprazolam (Verified Adverse Reaction, Mild, upset stomach, 09/16/20) amlodipine (Verified Adverse Reaction, Mild, nervousness, edgey, 09/16/20) isopropamide (Verified Adverse Reaction, Mild, AMS, 09/16/20) oxycodone (Verified Adverse Reaction, Mild, nausea and dizziness, 09/16/20) prochlorperazine (Verified Adverse Reaction, Mild, AMS, 09/16/20) A-FIB/CHADSVASC A-FIB History Current/History of A-Fib/PAF?: No Current PO Anticoag Therapy: No JACLYN GUIDRY MD Jan 30, 2021 21:55
[2021-01-30 22:27] LABS: RSV AMPLIFICATION NEGATIVE (NEGATIVE)
[2021-01-30] MEDS ORDERED: HOME MED LIST COMPLETE! XX SCH (23:20)
[2021-01-30 23:58] LABS: CHOLESTEROL LEVEL 209 MG/DL (<200); HDL CHOLESTEROL 43 MG/DL (>40); LDL CHOLESTEROL 129 MG/DL (<100); NON-HDL-C 166 MG/DL; TRIGLYCERIDES LEVEL 185 MG/DL (<150)
[2021-01-31] MEDS ORDERED: cloNIDine 0.1MG TABLET PO ONE (00:25)
[2021-01-31] MEDS ORDERED: LEVOTHYROXINE 88MCG TABLET (0.088 MG) PO SCH (00:35)
[2021-01-31] MEDS ORDERED: MIRTAZAPINE 15 MG TAB PO SCH (00:35)
[2021-01-31] MEDS ORDERED: hydrALAZINE 20MG/ML 1ML VIAL (J0360 PER 20MG) IV PRN (00:35)
[2021-01-31] MEDS ORDERED: NS 1,000 ML IV SCH (00:40)
[2021-01-31] MEDS ORDERED: PILL CUTTER 1 EACH XX PRN (00:45)
[2021-01-31] MEDS: oxyBUTYnin 5 MG TAB PO SCH ×2 (01:49→09:43)
[2021-01-31] MEDS: GABAPENTIN 300 MG CAP PO SCH ×2 (01:49→09:44)
[2021-01-31] MEDS: TOPIRAMATE (TopAMAX) 25 MG TAB PO SCH ×2 (01:50→09:44)
[2021-01-31 04:00] VITALS: BP 131/59
--- NOTE | 2021-01-31 05:45 | ECGEPIP ---
[facility] - ED Test Date: 2021-01-30 Pat Name: ANIL LEZAMA Department: Room: - Gender: Female [employer] Tech: felicia : [id number] Requested By: JANNETTE KELLER Order Number: [id number] Reading MD: Skyler Lindsay Measurements Intervals [place] Rate: 57 P: 39 WV: 192 QRS: -45 QRSD: 108 T: 1 QT: 428 QTc: 416 Interpretive Statements Sinus bradycardia LEFT AXIS DEVIATION Left anterior fascicular block INCOMPLETE RIGHT BUNDLE BRANCH BLOCK Left ventricular hypertrophy ( R in aVL , [place] product , Romhilt-Rose ) SIMILAR TO PRIOR ON SAME DATE Electronically Signed on 01-31-2021 5:45:23 EDT by Skyler Lindsay
[2021-01-31] MEDS ORDERED: HEPARIN SOD (PORCINE) 5000UNITS/ML 1ML VIAL/SYRINGE SC SCH (06:00)
[2021-01-31 06:09] LABS: HEMATOCRIT 35.3 % (36.0-47.0); HEMOGLOBIN 11.7 g/dl (12.0-15.5); MEAN CORPUSCULAR HEMOGLOBIN 32.3 pg (27.0-33.0); MEAN CORPUSCULAR HGB CONC 33.1 g/dl (32.0-36.5); MEAN CORPUSCULAR VOLUME 97.5 fl (80.0-96.0); PLATELET COUNT, AUTOMATED 189 10^3/uL (150-450); RED BLOOD COUNT 3.62 10^6/uL (4.00-5.40); WHITE BLOOD COUNT 6.7 10^3/uL (4.0-10.0)
[2021-01-31 06:32] LABS: CALCIUM LEVEL 8.8 MG/DL (8.8-10.2); CREATININE FOR GFR 1.39 MG/DL (0.55-1.30); GLOMERULAR FILTRATION RATE 38.9 (>39); POTASSIUM SERUM 4.1 MEQ/L (3.5-5.1)
[2021-01-31 07:30] VITALS: BP 133/79
[2021-01-31] MEDS ORDERED: METOPROLOL SUCC (TopROL XL) 100MG *XL* TAB PO SCH (09:00)
[2021-01-31] MEDS ORDERED: clonazePAM 0.5 MG TAB PO SCH (09:00)
[2021-01-31] MEDS ORDERED: CALCITRIOL 0.25 MCG CAP (S0169) PO SCH (09:00)
[2021-01-31 09:44] VITALS: BP 133/79
[2021-01-31 11:58] VITALS: BP 139/65
--- NOTE | 2021-01-31 16:10 | DS.PDOC ---
Discharge Summary General Date of Admission Jan 30, 2021 at 21:47 Date of Discharge Jan 31, 2021 Discharge Summary PROCEDURES PERFORMED DURING STAY: None ADMITTING DIAGNOSES: 1. Hypertensive emergency 2. Elevated CPK 3. First-degree AV block 4. CKD stage III 5. Hypothyroidism 6. Neuropathy 7. Migraines 8. Anxiety and depression 9. Class I obesity DISCHARGE DIAGNOSES: 1. Hypertensive emergency 2. Elevated CPK 3. First-degree AV block 4. CKD stage III 5. Hypothyroidism 6. Neuropathy 7. Migraines 8. Anxiety and depression 9. Class I obesity COMPLICATIONS/CHIEF COMPLAINT: Hypertensive Urgency. HISTORY OF PRESENT ILLNESS: Copied from admitting attendings H&P ", a 80 yr old F was last admitted to our service in August for HTN Crisis; in addition to c/w her Metoprolol she was discharged with amlodipine 10mg daily. She felt like the amlodipine made her fell unwell so she disc ontinued it. She has followed up with Nancy Aguirre. This morning at about 830AM she developed 2/10 in severity left sided, non-reproducible chest pain; she couldnt identify any aggravating or alleviating factors. She also has a BERGMAN but denies being dizzy or feeling short of breath. She denies missing any doses of her metoprolol, taking NSAIDs, drinking soda, eating salty foods, being under a lot of stress or smoking. When she checked her BP it was high so she decided to come to the ER; according to the pt her BP was normal yesterday. Because her SBP was in the 200s [facility] Mak ordered 10mg of IV hydralazine x 2." HOSPITAL COURSE: Patient did well overnight. Troponins are negative x2. Renal function improved. CPK declined from 792 to 549. This morning she feels better. Her blood pressure remained controlled and consistent without the use of PRN hydralazine. At 4 AM, blood pressure was 131/59. At 7:30 AM, her blood pressure was 133/79. At 9:44 AM, her blood pressure was 133/79. At 11:58 AM, her blood pressure was 139/65. Denies any headache or chest pain. Denies short ness of breath. She tells me that she ate several slices of pepperoni pizza and was wondering if the salt from the pepperoni pizza could have triggered her hypertensive event. I recommended a low-sodium diet. Patient felt well and felt ready for home. She was subsequently discharged home. DISCHARGE MEDICATIONS: Please see below. ALLERGIES: Please see below. PHYSICAL EXAMINATION ON DISCHARGE: VITAL SIGNS: Please see below. GENERAL: Comfortable, in no apparent distress. HEENT: EOMI, sclera clear. NECK: Supple. RESPIRATORY: Lungs clear to auscultation bilaterally, no rales, wheeze or rhon chi. CARDIOVASCULAR: Regular rate and rhythm. ABDOMEN: Soft, nontender, no guarding or rebound tenderness. Normal bowel sounds. NEUROLOGICAL: Normal speech PSYCHOLOGICAL: Normal mood and affect LABORATORY DATA: Please see below. IMAGING: Radiologist interpretation Chest x-ray No acute cardiopulmonary process appreciated. PROGNOSIS: Good ACTIVITY: As tolerated. DIET: 2 g sodium diet DISCHARGE PLAN: Home DISPOSITION: Home, Self-Care. DISCHARGE INSTRUCTIONS: 1. Follow-up with your PCP in 1 week. ITEMS TO FOLLOWUP ON ON OUTPATIENT: 1. Echocardiogram DISCHARGE CONDITION: Stable Total time spent on discharge planning, discharge summary, and medication reconciliation: 35 minutes Vital Signs/I&Os Vital Signs Date Time Temp Pulse Resp B/P (MAP) Pulse Ox O2 Delivery O2 Flow Rate FiO2 01/31/21 11:58 97.1 51 16 139/65 (89) 93 Room Air I&O- Last 24 Hours up to 6 AM 01/31/21 05:59 Intake Total 0 ml Balance 0 ml Laboratory Data Labs 24H Laboratory Tests 2 01/30/21 17:48: Immature Granulocyte % (Auto) 0.2, Neutrophils (%) (Auto) 57.6, Lymphocytes (%) (Auto) 25.4, Monocytes (%) (Auto) 12.6H, Eosinophils (%) (Auto) 2.9, Basophils (%) (Auto) 1.3H, Neutrophils # (Auto) 3.2, Lymphocytes # (Auto) 1.4L, Monocytes # (Auto) 0.7, Eosinophils # (Auto) 0.2, Basophils # (Auto) 0.1, Nucleated Red Blood Cells % (auto) 0.0, Anion Gap 7L, Glomerular Filtration Rate 30.5L, Calcium Level 9.3, Total Bilirubin 0.2, Direct Bilirubin < 0.1, Aspartate Amino Transf (AST/SGOT) 35, Alanine Aminotransferase (ALT/SGPT) 54, Alkaline Phosphatase 78, Total Creatine Kinase 792H, Creatine Kinase MB 42.3H, Creatine Kinase MB Relative Index 5.34H, Troponin I < 0.02, AA-Lkc-D-Type Natriuretic Peptide 360, Total Protein 7.6, Albumin 3.2, Albumin/Globulin Ratio 0.7L, Lipase 118, Thyroid Stimulating Hormone (TSH) 1.460 01/30/21 20:19: Total Creatine Kinase 751H, Creatine Kinase MB 41.1H, Creatine Kinase MB Relative Index 5.47H, Troponin I < 0.02, Triglycerides Level 185H, Total Cholesterol 209H, LDL Cholesterol 129H, Non-HDL Cholesterol (LDL + VLDL) 166, Total HDL Cholesterol 43, Cholesterol/HDL Ratio 4.860 01/30/21 21:26: Coronavirus (COVID-19)(PCR) NEGATIVE, Influenza Type A (RT-PCR) NEGATIVE, Influenza Type B (RT-PCR) NEGATIVE, Respiratory Syncytial Virus (PCR) NEGATIVE 01/31/21 05:41: Anion Gap 6L, Glomerular Filtration Rate 38.9L, Calcium Level 8.8, Total Creatine Kinase 549H 01/31/21 05:42: Nucleated Red Blood Cells % (auto) 0.0 CBC/BMP Laboratory Tests 01/30/21 17:48 01/31/21 05:41 01/31/21 05:42 Discharge Medications Scheduled Bupropion Hcl (Bupropion HCl Sr) 150 Mg Tab.sr.12h, 150 MG PO QHS, (Reported) Calcitriol (Calcitriol) 0.25 Mcg Cap, 0.25 MCG PO 2XW, (Reported) WEDNESDAY AND WEDNESDAY Clonazepam (Klonopin) 0.5 Mg Tab, 0.25 MG PO DAILY, (Reported) Cranberry (Cranberry) 400 Mg Capsule, 400 MG PO BID, (Reported) Folic Acid (Folic Acid) 800 Mcg Cap, 800 MCG PO DAILY, (Reported) Gabapentin (Gabapentin) 300 Mg Cap, 300 MG PO BID, (Reported) Levothyroxine Sodium (Levothyroxine Sodium) 88 Mcg Tab, 88 MCG PO QHS, (Reported) Metoprolol Succinate (Toprol Xl) 100 Mg Tab, 100 MG PO DAILY, (Reported) Mirtazapine (Remeron) 15 Mg Tab, 15 MG PO QHS, (Reported) Omeprazole (Omeprazole) 40 Mg Capsule.dr, 40 MG PO DAILY, (Reported) Oxybutynin Chloride (Oxybutynin Chloride) 5 Mg Tab, 5 MG PO BID, (Reported) Pravastatin Sodium (Pravastatin Sodium) 20 Mg Tablet, 20 MG PO 2XWK, (Reported) WEDNESDAY AND WEDNESDAY AT [facility] Topiramate (Topiramate) 50 Mg Tablet, 50 MG PO BID, (Reported) Allergies Coded Allergies: Penicillins (Verified Allergy, Intermediate, hives, 09/16/20) Tetracyclines (Verified Adverse Reaction, Intermediate, pernicious anemia, 09/16/20) sulfamethoxazole (Verified Adverse Reaction, Intermediate, acute kidney injury, 09/16/20) trimethoprim (Verified Adverse Reaction, Intermediate, acute kidney injury, 09/16/20) NSAIDS (Non-Steroidal Anti-Inflamma (Verified Adverse Reaction, Mild, hernia upset, 09/16/20) alprazolam (Verified Adverse Reaction, Mild, upset stomach, 09/16/20) amlodipine (Verified Adverse Reaction, Mild, nervousness, edgey, 09/16/20) isopropamide (Verified Adverse Reaction, Mild, AMS, 09/16/20) oxycodone (Verified Adverse Reaction, Mild, nausea and dizziness, 09/16/20) prochlorperazine (Verified Adverse Reaction, Mild, AMS, 09/16/20) JUAN JOSE MANZANO DO Jan 31, 2021 16:10
--- NOTE | 2021-02-01 11:24 | ECHO ---
ECHOCARDIOGRAM DATE OF PROCEDURE: 01/31/2021 Age: Gender: Female Height: 160 cm Weight: 82 kg REFERRING PHYSICIAN: Giana Gallegos M.D. INDICATION: Chest pain. MEASUREMENTS: IVS 1.5 cm LV 4.1 cm LVPW 1.2 cm LA 3.6 cm Aorta 3.4 cm Mitral E wave velocity 52 A wave 80 E prime septal 5.6 E prime lateral 6.1 FINDINGS: This study is of acceptable technical quality. Underlying sinus rhythm. Left ventricle is of normal size and systolic function. Estimated ejection fraction (EF) of around 65-70%. I do not appreciate any segmental wall motion abnormalities. Moderate left ventricular hypertrophy is noted. Right ventricle is of normal size and systolic function. Both atria appear grossly normal. Aortic valve is minimally sclerotic, but has three cusps and preserved mobility. There are also mild degenerative abnormalities of mitral valve with mitral annular calcifications. Tricuspid valve appears normal. Pulmonic valve was not well seen. No pericardial effusion is noted. Inferior vena cava was poorly seen, but appears very small. Aortic root appears normal. Aortic arch and abdominal aorta were not well seen. Doppler interrogation reveals competent aortic and mitral valves. There was trivial tricuspid regurgitation (TR), but quality of TR jet was not sufficient to calculate pulmonary artery pressure. Mitral inflow pattern and tissue Doppler imaging of mitral annulus revealed grade 1 diastolic dysfunction. CONCLUSIONS: 1. Study is of acceptable technical quality. Underlying sinus rhythm. 2. Normal left ventricular (LV) size with moderate left ventricular hypertrophy (LVH). Preserved LV systolic function (estimated left ventricular ejection fraction (LVEF 65-70%) and grade 1 diastolic dysfunction. 3. No significant valvular disease. 4. Likely normal central venous pressure, but unable to estimate pulmonary artery pressure. MTDD
== END 2021-01-31 14:33 | disposition home or self-care (01) | DRG 305 ==
LOC: M ED 16:45 → M ED INP 21:47 → M PCU 01-31 01:34
PROVIDERS: ADMIT Internal Medicine; ATTEND Internal Medicine
DX: I16.0 Hypertensive urgency (principal); M19.90 Unspecified osteoarthritis, unspecified site; R26.89 Other abnormalities of gait and mobility; E03.9 Hypothyroidism, unspecified; F41.9 Anxiety disorder, unspecified; F32.9 Major depressive disorder, single episode, unspecified; K21.9 Gastro-esophageal reflux disease without esophagitis; K25.9 Gastric ulcer, unspecified as acute or chronic, without hemorrhage or perforation; G43.909 Migraine, unspecified, not intractable, without status migrainosus; N18.30 Chronic kidney disease, stage 3 unspecified; I12.9 Hypertensive chronic kidney disease with stage 1 through stage 4 chronic kidney disease, or unspecified chronic kidney disease; G62.9 Polyneuropathy, unspecified; E78.5 Hyperlipidemia, unspecified; K58.9 Irritable bowel syndrome, unspecified; E66.9 Obesity, unspecified; H91.90 Unspecified hearing loss, unspecified ear; Z96.643 Presence of artificial hip joint, bilateral; Z90.79 Acquired absence of other genital organ(s); I44.0 Atrioventricular block, first degree; R74.8 Abnormal levels of other serum enzymes; Z20.822 Contact with and (suspected) exposure to COVID-19; Z79.899 Other long term (current) drug therapy; Z88.0 Allergy status to penicillin; Z88.1 Allergy status to other antibiotic agents; Z88.2 Allergy status to sulfonamides; Z88.5 Allergy status to narcotic agent; Z88.8 Allergy status to other drugs, medicaments and biological substances

== ENCOUNTER → 2021-02-18 | Outpatient (REF) | payer MEDICARE | LOC: M LAB REF 13:10 | PROVIDERS: ATTEND Internal Medicine Nephrology | DX: E83.42 Hypomagnesemia (principal); E87.6 Hypokalemia; N18.32 Chronic kidney disease, stage 3b ==

== ENCOUNTER → 2021-08-19 | Outpatient (REF) | payer MEDICARE ==
[~2021-08-19] MED LIST changes: +BUPR-71 PO; -BUPR150T5 PO; -OMEP-221; -OMEP-221 PO; +OMEP40CA5; +OMEP40CA5 PO
== END ==
LOC: M LAB REF 17:01
PROVIDERS: ATTEND Nurse Practitioner Family
DX: N39.0 Urinary tract infection, site not specified (principal)

== ENCOUNTER → 2021-11-05 | Outpatient (CLI) | payer MEDICARE | LOC: M WHC 11:52 | PROVIDERS: ATTEND Obstetrics & Gynecology | DX: Z12.31 Encounter for screening mammogram for malignant neoplasm of breast (principal); Z80.3 Family history of malignant neoplasm of breast; Z78.0 Asymptomatic menopausal state ==

== ENCOUNTER → 2022-01-12 | Outpatient (CLI) | payer MEDICARE ==
[~2022-01-12] MED LIST changes: +CVS1CAP2 PO; +MAPA500C PO; +SIMV-253 PO; +SUPETAB44 PO; -ZOCO20TA PO
== END ==
LOC: M LABSMTC 10:43
PROVIDERS: ATTEND Anesthesiology
DX: Z01.812 Encounter for preprocedural laboratory examination (principal); Z20.822 Contact with and (suspected) exposure to COVID-19

== ENCOUNTER 2022-01-14 11:41 | Day surgery (SDC) | payer MEDICARE ==
[~2022-01-14] VITALS: Ht 160 cm; Wt 82.9 kg
[~2022-01-14 11:41] MED LIST changes: +BSS IRRIG/VANCO(10MG)/TOBRA(5MG)/EPINEPH(1:1000-0.5CC)500ML BAG-ORONLY IR ONE; +CYCLOPENTOLATE 1% OPHTH SOLN 2 ML BTL OS SCH; +LIDOCAINE 1% SDV 5ML VIAL As Ordered ONE; +LIDOCAINE 3.5 % 1ML OPHTH TOPICAL GEL OU ONE; +OFLOXACIN 0.3 % (OCUFLOX) OPTH SOL 5ML OS ONE; +PHENYLEPHRINE 2.5% OPHTH SOL 2ML OS SCH; +PHENYLEPHRINE HCL 10 % OPHTH. SOL 5ML OS PRN; +TROPICAMIDE 1% OPHTH SOLN 2ML OS SCH; +acetaZOLAMIDE 500MG ER CAP PO ONE
[2022-01-14] MEDS ORDERED: propofoL 200 MG/20 ML VIAL As Ordered ONE (13:00)
[2022-01-14] MEDS ORDERED: fentaNYL 100 MCG/2 ML INJECTION As Ordered ONE (13:00)
[2022-01-14] MEDS ORDERED: ACETAMINOPHEN 325 MG TAB PO PRN (13:10)
[2022-01-14] MEDS ORDERED: ONDANSETRON 4MG TAB PO PRN (13:10)
[2022-01-14 13:45] VITALS: BP 184/77
== END 2022-01-14 13:50 | disposition home or self-care (01) ==
LOC: M SDC 11:41
PROVIDERS: ATTEND Ophthalmology
DX: H25.12 Age-related nuclear cataract, left eye (principal); I10 Essential (primary) hypertension; E78.5 Hyperlipidemia, unspecified; E03.9 Hypothyroidism, unspecified; G43.909 Migraine, unspecified, not intractable, without status migrainosus; K58.8 Other irritable bowel syndrome; D64.9 Anemia, unspecified; F41.9 Anxiety disorder, unspecified; F32.A Depression, unspecified; Z88.8 Allergy status to other drugs, medicaments and biological substances; Z88.0 Allergy status to penicillin; Z88.2 Allergy status to sulfonamides; N18.30 Chronic kidney disease, stage 3 unspecified; Z79.899 Other long term (current) drug therapy
CPT/HCPCS: 66984; J3010; V2632

== ENCOUNTER → 2022-06-26 | Outpatient (REF) | payer MEDICARE ==
[~2022-06-26] MED LIST changes: -BSS IRRIG/VANCO(10MG)/TOBRA(5MG)/EPINEPH(1:1000-0.5CC)500ML BAG-ORONLY IR ONE; -CYCLOPENTOLATE 1% OPHTH SOLN 2 ML BTL OS SCH; -LIDOCAINE 1% SDV 5ML VIAL As Ordered ONE; -LIDOCAINE 3.5 % 1ML OPHTH TOPICAL GEL OU ONE; -OFLOXACIN 0.3 % (OCUFLOX) OPTH SOL 5ML OS ONE; -PHENYLEPHRINE 2.5% OPHTH SOL 2ML OS SCH; -PHENYLEPHRINE HCL 10 % OPHTH. SOL 5ML OS PRN; +TOPI-254; +TOPI-254 PO; -TOPI50TA9; -TOPI50TA9 PO; -TROPICAMIDE 1% OPHTH SOLN 2ML OS SCH; -acetaZOLAMIDE 500MG ER CAP PO ONE
[2022-06-26 20:17] LABS: CHOLESTEROL RISK RATIO 4.2 (<5); HDL CHOLESTEROL 37.1 MG/DL (>40); LDL CHOLESTEROL 89.1 MG/DL (<100)
[2022-06-26 20:19] LABS: FREE T4 1.05 NG/DL (0.89-1.76); THYROID STIMULATING HORMONE 0.705 uIU/ML (0.55-4.78)
== END ==
LOC: M SFHCADAM 12:20
PROVIDERS: ATTEND Physician Assistant
DX: E03.9 Hypothyroidism, unspecified (principal); I12.9 Hypertensive chronic kidney disease with stage 1 through stage 4 chronic kidney disease, or unspecified chronic kidney disease; N18.32 Chronic kidney disease, stage 3b; E78.00 Pure hypercholesterolemia, unspecified

== ENCOUNTER → 2022-06-30 | Outpatient (CLI) | payer MEDICARE ==
[~2022-06-30] MED LIST changes: +E-Z-GAS II EFFERVESCENT PACKET (SODIUM BICARB./CITRIC ACID/SIMETHICONE) As Ordered ONE; +E-Z-HD 98% w/w 340GM SUSP BTL As Ordered ONE; +E-Z-PAQUE 96% w/w SUSP 176GM BTL As Ordered ONE
== END ==
LOC: M RAD 08:09
PROVIDERS: ATTEND Internal Medicine Gastroenterology
DX: R13.10 Dysphagia, unspecified (principal); J39.2 Other diseases of pharynx

== ENCOUNTER → 2022-07-09 | Outpatient (CLI) | payer MEDICARE ==
[~2022-07-09] MED LIST changes: -E-Z-GAS II EFFERVESCENT PACKET (SODIUM BICARB./CITRIC ACID/SIMETHICONE) As Ordered ONE; -E-Z-HD 98% w/w 340GM SUSP BTL As Ordered ONE; -E-Z-PAQUE 96% w/w SUSP 176GM BTL As Ordered ONE
== END ==
LOC: M LABSMTC 10:55
PROVIDERS: ATTEND Anesthesiology
DX: Z01.818 Encounter for other preprocedural examination (principal)

== ENCOUNTER 2022-07-14 10:01 | Day surgery (SDC) | payer MEDICARE ==
[~2022-07-14] VITALS: Ht 160 cm; Wt 82.9 kg
[~2022-07-14 10:01] MED LIST changes: +NS 1,000 ML IV ONE
[2022-07-14] MEDS ORDERED: LIDOCAINE 2% 100MG/5ML SDV (FOR ANES.) As Ordered ONE (12:03)
[2022-07-14] MEDS ORDERED: propofoL 200 MG/20 ML VIAL As Ordered ONE (12:03)
[2022-07-14 12:55] VITALS: BP 150/66
== END 2022-07-14 13:05 | disposition home or self-care (01) ==
LOC: M OPP 10:01
PROVIDERS: ATTEND Internal Medicine Gastroenterology
DX: K31.7 Polyp of stomach and duodenum (principal); K22.2 Esophageal obstruction; N18.30 Chronic kidney disease, stage 3 unspecified; N39.498 Other specified urinary incontinence; Z79.02 Long term (current) use of antithrombotics/antiplatelets; Z79.890 Hormone replacement therapy; Z79.891 Long term (current) use of opiate analgesic; Z79.899 Other long term (current) drug therapy; Z88.0 Allergy status to penicillin; Z88.1 Allergy status to other antibiotic agents; Z88.2 Allergy status to sulfonamides; Z88.5 Allergy status to narcotic agent; Z88.6 Allergy status to analgesic agent; Z88.8 Allergy status to other drugs, medicaments and biological substances; Z80.3 Family history of malignant neoplasm of breast

== ENCOUNTER → 2022-12-08 | Outpatient (CLI) | payer MEDICARE ==
[~2022-12-08] MED LIST changes: -NS 1,000 ML IV ONE
== END ==
LOC: M WHC 10:49
PROVIDERS: ATTEND Physician Assistant
DX: Z12.31 Encounter for screening mammogram for malignant neoplasm of breast (principal)

== ENCOUNTER → 2023-02-26 | Outpatient (CLI) | payer MEDICARE ==
[~2023-02-26] MED LIST changes: -MIRT-62 PO; +MIRT-88 PO; -OXYB5TAB10 PO; +OXYB5TAB11 PO
== END ==
LOC: M ADAMS 15:31
PROVIDERS: ATTEND Physician Assistant
DX: I51.7 Cardiomegaly (principal); J40 Bronchitis, not specified as acute or chronic

== ENCOUNTER → 2023-06-22 | Outpatient (REF) | payer MEDICARE ==
[~2023-06-22] MED LIST changes: -KLON0.5T PO; +KLON0.5T8 PO; -OXYB5TAB11 PO; +OXYB5TAB14 PO; +TOPI-21; +TOPI-21 PO; -TOPI-254; -TOPI-254 PO
[2023-06-22 16:16] LABS: BASO # 0.1 10^3/uL (0.0-0.2); BASO % 1.3 % (0.0-1.0); EOS # 0.2 10^3/uL (0.0-0.5); EOS % 3.8 % (0.0-3.0); HEMATOCRIT 38.3 % (36.0-47.0); HEMOGLOBIN 12.4 g/dl (12.0-15.5); LYMPH # 1.8 10^3/uL (1.5-5.0); LYMPH % 30.4 % (24.0-44.0); MEAN CORPUSCULAR HEMOGLOBIN 32.2 pg (27.0-33.0); MEAN CORPUSCULAR HGB CONC 32.4 g/dl (32.0-36.5); MEAN CORPUSCULAR VOLUME 99.5 fl (80.0-96.0); MONO # 0.7 10^3/uL (0.0-0.8); MONO % 10.7 % (2.0-8.0); NEUTROPHILS # 3.3 10^3/uL (1.5-8.5); NEUTROPHILS % 53.6 % (36.0-66.0); PLATELET COUNT, AUTOMATED 218 10^3/uL (150-450); RED BLOOD COUNT 3.85 10^6/uL (4.00-5.40); WHITE BLOOD COUNT 6.1 10^3/uL (4.0-10.0)
[2023-06-22 16:21] LABS: ALBUMIN 3.2 G/DL (3.2-5.2); BILIRUBIN,TOTAL 0.2 MG/DL (0.3-1.2); CALCIUM LEVEL 9.1 MG/DL (8.3-10.6); CHOLESTEROL RISK RATIO 4.35 (<5); CREATININE FOR GFR 1.51 MG/DL (0.55-1.30); GLOMERULAR FILTRATION RATE 35.1 (>32); HDL CHOLESTEROL 40.9 MG/DL (>40); LDL CHOLESTEROL 113.1 MG/DL (<100); NON-HDL-C 137.1 MG/DL; POTASSIUM SERUM 4.6 MMOL/L (3.5-5.1); TOTAL PROTEIN 6.9 G/DL (5.7-8.2)
[2023-06-22 16:26] LABS: THYROID STIMULATING HORMONE 0.96 uIU/ML (0.55-4.78); TOTAL 25(OH) VITAMIN D 40.3 NG/ML (20.0-100.0)
[2023-06-22 16:29] LABS: FREE T4 0.96 NG/DL (0.89-1.76)
== END ==
LOC: M SFHCADAM 14:35
PROVIDERS: ATTEND Physician Assistant
DX: R13.12 Dysphagia, oropharyngeal phase (principal); F32.0 Major depressive disorder, single episode, mild; F41.9 Anxiety disorder, unspecified; E03.9 Hypothyroidism, unspecified; E78.00 Pure hypercholesterolemia, unspecified; I12.9 Hypertensive chronic kidney disease with stage 1 through stage 4 chronic kidney disease, or unspecified chronic kidney disease; Z79.899 Other long term (current) drug therapy

== ENCOUNTER → 2023-08-30 | Outpatient (REF) | payer MEDICARE ==
[2023-08-30 17:55] LABS: APPEARANCE, URINE CLOUDY (CLEAR); BACTERIA, URINE AUTO 1+ (NEGATIVE); BILIRUBIN, URINE AUTO NEGATIVE (NEGATIVE); BLOOD, URINE BLOOD NEGATIVE (NEGATIVE); COLOR, URINE AMBER (YELLOW); GLUCOSE, URINE (UA) AUTO NEGATIVE (NEGATIVE); KETONE, URINE AUTO NEGATIVE (NEGATIVE); LEUKOCYTE ESTERASE, URINE AUTO 3+ (NEGATIVE); MUCUS, URINE SMALL (NEGATIVE); NITRITE, URINE AUTO NEGATIVE (NEGATIVE); PROTEIN, URINE AUTO 1+ mg/dL (NEGATIVE); RBC, URINE AUTO 3 /HPF (0-3); SPECIFIC GRAVITY URINE AUTO 1.019 (1.002-1.035); SQUAMOUS EPITHELIAL CELL UR AU 5 /HPF (0-6); UROBILINOGEN, URINE AUTO 0.2 mg/dL (0.0-2.0); WBC, URINE AUTO TNTC /HPF (0-3)
== END ==
LOC: M LABDRWAD 17:07
PROVIDERS: ATTEND Internal Medicine Nephrology
DX: N32.81 Overactive bladder (principal); N39.0 Urinary tract infection, site not specified

== ENCOUNTER → 2023-09-21 | Outpatient (CLI) | payer MEDICARE | LOC: M SOG 11:50 | PROVIDERS: ATTEND Physician Assistant | DX: M25.511 Pain in right shoulder (principal); M19.011 Primary osteoarthritis, right shoulder ==

== ENCOUNTER → 2024-02-16 | Outpatient (REF) | payer MEDICARE ==
[~2024-02-16] MED LIST changes: -CRAN400C PO; +CRANBERRY400 MG PO; +GABA-1172 PO; -GABA-282 PO
== END ==
LOC: M LAB REF 17:16
PROVIDERS: ATTEND Otolaryngology
DX: B37.0 Candidal stomatitis (principal)

== ENCOUNTER → 2024-03-21 | Outpatient (CLI) | payer MEDICARE ==
[2024-03-21 16:26] LABS: ALBUMIN 3.1 G/DL (3.2-5.2); ALKALINE PHOSPHATASE 92 U/L (35-104); ALT/SGPT 39 U/L (7.0-40); AST/SGOT 29 U/L (<34); BILIRUBIN,DIRECT < 0.1 MG/DL (<0.4); BILIRUBIN,TOTAL 0.2 MG/DL (0.3-1.2); TOTAL PROTEIN 6.9 G/DL (5.7-8.2)
== END ==
LOC: M LAB 15:29
PROVIDERS: ATTEND Otolaryngology
DX: B37.0 Candidal stomatitis (principal)

== ENCOUNTER → 2024-04-05 | Outpatient (REF) | payer MEDICARE | LOC: M LAB REF 17:31 | PROVIDERS: ATTEND Otolaryngology | DX: B37.0 Candidal stomatitis (principal) ==

== ENCOUNTER → 2024-07-05 | Outpatient (REF) | payer MEDICARE | LOC: M LAB REF 17:01 | PROVIDERS: ATTEND Nurse Practitioner Family | DX: N39.0 Urinary tract infection, site not specified (principal) ==

== ENCOUNTER 2024-11-21 10:31 | Day surgery (SDC) | payer MEDICARE ==
[~2024-11-21] VITALS: Ht 160 cm; Wt 79.9 kg
[~2024-11-21 10:31] MED LIST changes: +CVS500CA5 PO; +NOXI1TAB PO; -PRAV20TA2 PO; +PRAV20TA78 PO
[2024-11-21 13:33] VITALS: TEMP 97.6
[2024-11-21 13:48] VITALS: BP 167/82; O2SAT 95
[2024-11-21] MEDS ORDERED: LIDOCAINE 2% 100 MG/5 ML SDV (FOR ANES.) As Ordered ONE (13:49)
== END 2024-11-21 13:50 | disposition home or self-care (01) ==
LOC: M OPP 10:31
PROVIDERS: ATTEND Internal Medicine Gastroenterology
DX: R13.12 Dysphagia, oropharyngeal phase (principal); Z88.0 Allergy status to penicillin; Z88.1 Allergy status to other antibiotic agents; Z88.2 Allergy status to sulfonamides; Z88.5 Allergy status to narcotic agent; Z88.8 Allergy status to other drugs, medicaments and biological substances; Z79.899 Other long term (current) drug therapy

== ENCOUNTER → 2024-12-14 | Outpatient (REF) | payer MEDICARE ==
[2024-12-14 18:09] LABS: CHOLESTEROL LEVEL 188.0 MG/DL (<200); CHOLESTEROL RISK RATIO 4.61 (<5); LDL CHOLESTEROL 117.1 MG/DL (<100); NON-HDL-C 147.3 MG/DL; TRIGLYCERIDES LEVEL 151.0 MG/DL (<150)
[2024-12-14 18:12] LABS: FREE T4 1.12 NG/DL (0.89-1.76)
== END ==
LOC: M SFHCADAM 15:18
PROVIDERS: ATTEND Physician Assistant
DX: E78.00 Pure hypercholesterolemia, unspecified (principal); E03.9 Hypothyroidism, unspecified; N18.32 Chronic kidney disease, stage 3b